=== PATIENT | male | born 1990 | race Caucasian/White ===

== ENCOUNTER 2019-11-03 08:50 | Emergency (ER) | payer MEDICAID, OTHER ==
[~2019-11-03] VITALS: Ht 182.9 cm; Wt 65.9 kg
[2019-11-03 08:57] VITALS: BP 123/74
[2019-11-03] MEDS ORDERED: NO HOME MEDS (09:20)
[2019-11-03] MEDS ORDERED: proparacaine 0.5% ophthalmic drops 15ml EACHEYE ONE (09:45)
--- NOTE | 2019-11-03 09:53 | NUR ---
eye cart and procainamide placed in room
[2019-11-03] MEDS ORDERED: ciprofloxacin 0.3% 2.5ml ophthalmic solution RIGHTEYE ONE (10:50)
== END 2019-11-03 11:17 | disposition home or self-care (01) ==
LOC: ER 08:51
DX: H10.9 Unspecified conjunctivitis (principal); Z88.2 Allergy status to sulfonamides
CPT/HCPCS: 99282; 99283